=== PATIENT | female | born 1980 | race Caucasian/White ===

== ENCOUNTER 2017-11-05 13:55 | Emergency (ER) | payer OTHER, MEDICAID ==
[~2017-11-05] VITALS: Ht 162.6 cm; Wt 79.4 kg
[2017-11-05] MEDS ORDERED: TRILEPTAL300 MG PO (14:13)
[2017-11-05] MEDS ORDERED: FANAPT8 MG PO (14:13)
[2017-11-05] MEDS ORDERED: OXTELLAR XR150 MG PO (14:14)
[2017-11-05 14:36] LABS: ABSOLUTE BASOPHILS 0.1 thou/uL (0.0-0.2); ABSOLUTE EOSINOPHILS 0.1 thou/uL (0.0-0.7); ABSOLUTE LYMPHOCYTES 2.5 thou/uL (0.8-5.3); ABSOLUTE MONOCYTES 0.6 thou/uL (0.0-1.2); ABSOLUTE NEUTROPHILS 9.3 thou/uL (1.6-8.1); BASOPHILS 0.8 %; EOSINOPHILS 0.6 %; HEMATOCRIT 42.3 % (37.0-47.0); HEMOGLOBIN 14.1 gm/dL (12.0-15.0); LYMPHOCYTES 19.8 %; MCH 29.9 pg (26.0-34.0); MCHC 33.4 g/dL (28.0-37.0); MCV 89.6 fL (80.0-100.0); MONOCYTES 4.5 %; MPV 7.4 fl. (7.2-11.1); NUCLEATED RBCS 0 /100WBC; PLATELET COUNT* 356 thou/uL (150-400); POLYS 74.3 %; RBC 4.72 mil/uL (4.20-5.00); RDW-CV 13.5 % (10.5-14.5); WBC 12.6 thou/uL (4.0-11.0)
[2017-11-05 14:45] LABS: CALCIUM 8.6 mg/dL (8.5-10.1); CREATININE 0.9 mg/dL (0.6-1.3); POTASSIUM 3.5 mmol/L (3.5-5.1)
[2017-11-05 14:54] LABS: ALBUMIN 3.7 g/dL (3.4-5.0); TOTAL BILIRUBIN 0.3 mg/dL (<0.1-1.0); TOTAL PROTEIN 7.2 g/dL (6.4-8.2)
[2017-11-05 17:06] LABS: URINE BILIRUBIN NEGATIVE (Negative); URINE BLOOD NEGATIVE (Negative); URINE CLARITY CLEAR; URINE COLOR YELLOW; URINE GLUCOSE-RANDOM NEGATIVE (Negative); URINE KETONES NEGATIVE (Negative); URINE LEUKOCYTES-REFLEX NEGATIVE (Negative); URINE NITRITE-REFLEX NEGATIVE (Negative); URINE PROTEIN NEGATIVE (Negative); URINE UROBILINOGEN 0.2 E.U./dl (0.2-1.0)
[2017-11-05 17:18] LABS: AMP/METHAMP Negative (Negative); BARBITURATES Negative (Negative); BENZODIAZEPINES Negative (Negative); COCAINE Negative (Negative); METHADONE Negative (Negative); OPIATES Negative (Negative); PCP Negative (Negative); THC Negative (Negative)
[2017-11-05] MEDS ORDERED: ESCITALOPRAM OX20 MG PO (17:35)
[2017-11-05 18:25] VITALS: BP 126/57
--- NOTE | 2017-11-06 10:39 | EKG ---
[place] [address] ELECTROCARDIOGRAM REPORT Name: ROSE MARIE BLACKBURN Room: [facility]#: [id number] Admission: 11/05/17 Attend Phys: Discharge: 11/05/17 Date of : 78 Report #: [id number] THIS REPORT FOR: //name// [facility] ED Test Date: 2017-11-05 Test Time: 14:21:08 Pat Name: ROSE MARIE BLACKBURN Department: Room: Gender: F Valuation Consultant: Gigi CONTRERAS : 1980 Requested By: Caron Yanez Order Number: [id number] MD: Jayme Carlisle Measurements Intervals [place] Rate: 99 P: 40 ID: [id number] QRS: 42 QRSD: 82 T: 16 QT: 364 QTc: 468 Interpretive Statements Sinus rhythm Probable left atrial enlargement Borderline T wave abnormalities No previous ECG available for comparison Electronically Signed On 11-06-2017 10:38:58 CDT by Jayme Carlisle [email or web address] <ELECTRONICALLY SIGNED> By: Jayme Carlisle MD, [facility] 11/06/17 1038 1421 1421 Jayme Carlisle MD, FACC /EPI
== END 2017-11-05 18:31 | disposition left against medical advice (07) ==
LOC: M.ERS 13:55
PROVIDERS: Physician Assistant
DX: I95.1 Orthostatic hypotension (principal); R56.9 Unspecified convulsions; F17.200 Nicotine dependence, unspecified, uncomplicated